=== PATIENT | female | born 1985 | race Caucasian/White ===

== ENCOUNTER 2018-11-10 09:33 | Emergency (ER) | payer OTHER ==
[~2018-11-10] VITALS: Ht 152.4 cm; Wt 61.2 kg
--- OUTSIDE RECORDS SUMMARY | 2018-11-10 09:41 | XMS REPORT | Clinical Summary ---
Author Author [facility] Organization [facility] Address Unknown Phone Unavailable Care Team Providers Care C D Stripper Name Role Phone Tonja Mackey MD PCP Allergies Active Allergy Reactions Severity Noted Date Comments Aspirin Nausea Only 07/02/2016 Morphine Burning 06/13/2016 Current Medications Prescription Sig. Disp. Refills Start End Date Status Date ondansetron (ZOFRAN-ODT) Dissolve 4 mg on the Active 4 MG disintegrating tongue every 8 (eight) tablet hours as needed for nausea. HYDROcodone-acetaminophen Take 1 tablet by mouth Active (NORCO) 5-325 mg per every 6 (six) hours as tablet needed for pain. polyethylene glycol Take 17 g by mouth daily. Active (GLYCOLAX) 17 gram packet hyoscyamine (LEVBID) Take 1 tablet (0.375 mg 30 tablet 0 06/13/20 Active 0.375 mg 12 hr tablet total) by mouth every 12 16 (twelve) hours as needed for cramping. Active Problems No known active problems Social History Tobacco Use Types Packs/Day Years Used Date Never Smoker Alcohol Use Drinks/Week oz/Week Comments No Sex Assigned at Date Recorded Not on file Last Filed Vital Signs Vital Sign Reading Time Taken Blood Pressure 122/83 07/02/2016 10:21 AM CDT Pulse 79 07/02/2016 10:21 AM CDT Temperature 36.7 C (98.1 F) 07/02/2016 10:21 AM CDT Respiratory Rate 20 06/13/2016 2:59 PM CDT Oxygen Saturation 100% 06/13/2016 2:59 PM CDT Inhaled Oxygen - - Concentration Weight 57.2 kg (126 lb) 07/02/2016 10:21 AM CDT Height 152.4 cm (5') 07/02/2016 10:21 AM CDT Body Mass Index 24.61 07/02/2016 10:21 AM CDT Plan of Treatment Health Maintenance Due Date Last Done Comments Td # 1987 Cervical Cancer Screening 02/28/2008 via Pap Smear Influenza Vaccine (Season 07/01/2019 Ended) Results Not on filefrom Last 3 Months
--- OUTSIDE RECORDS SUMMARY | 2018-11-10 09:41 | XMS REPORT | Continuity of Care Document ---
Author Author [facility] Organization [facility] Address Unknown Phone Unavailable Allergies There is no data. Medications There is no data. Problems Date Dx Coded Attending Type Code Diagnosis Diagnosed By 06/05/2015 COSENS DO, JENNIFER L Ot M25.511 06/05/2015 COSENS DO, JENNIFER L Ot M54.10 06/05/2015 COSENS DO, JENNIFER L Ot M54.2 06/05/2015 COSENS DO, JENNIFER L Ot M25.511 06/05/2015 COSENS DO, JENNIFER L Ot M54.10 06/05/2015 COSENS DO, JENNIFER L Ot M54.2 06/05/2015 COSENS DO, JENNIFER L Ot M25.511 06/05/2015 COSENS DO, JENNIFER L Ot M54.10 06/05/2015 COSENS DO, JENNIFER L Ot M54.2 06/05/2015 COSENS DO, JENNIFER L Ot M25.511 06/05/2015 COSENS DO, JENNIFER L Ot M54.10 06/05/2015 COSENS DO, JENNIFER L Ot M54.2 06/06/2015 COSENS DO, JENNIFER L Ot M25.511 06/06/2015 COSENS DO, JENNIFER L Ot M54.10 06/06/2015 COSENS DO, JENNIFER L Ot M54.2 06/06/2015 COSENS DO, JENNIFER L Ot M25.511 06/06/2015 COSENS DO, JENNIFER L Ot M54.10 06/06/2015 COSENS DO, JENNIFER L Ot M54.2 07/18/2015 COSENS DO, JENNIFER L Ot M25.511 07/18/2015 COSENS DO, JENNIFER L Ot M54.10 07/18/2015 COSENS DO, JENNIFER L Ot M54.2 Procedures There is no data. Results There is no data. Encounters ACCT No. Visit Date/Time Discharge Status Pt. Type Provider Facility Loc./Unit Complaint [id number] 05/31/2015 14:40:00 05/31/2015 23:59:59 [facility] Outpatient JENNIFER MORENO DO [facility] RADHA [id number] 05/31/2015 14:47:47 [facility] Document Registration
--- NOTE | 2018-11-10 09:47 | ED Abdominal Pain ---
General Chief Complaint: Abdominal/GI Problems Stated Complaint: VOMITTING Source of Information: Patient Exam Limitations: No Limitations History of Present Illness Date Seen by Provider: Nov 10, 2018 Time Seen by Provider: 09:46 33 y/o F with nausea, vomiting and diarrhea that started 4-5 days ago that have been constant and worsening. She has been vomiting 4-6 times per day. Not really able to keep down solids, able to sometimes keep clear liquids. Has associated sharp intermittent 6/10 suprapubic abdominal pain that radiates to the RLQ. Prior appendectomy, partial SBR (colon bleeding), cholecystectomy, BTL. Has never had bowel obstructions. Pain feels better at rest, worse with movement. Pain feels different than her IBS. No sick contacts, fevers or chills. Allergies and Home Medications Allergies Coded Allergies: aspirin (Verified Allergy, Unknown, nausea, 11/10/18) morphine (Verified Allergy, Unknown, feels like she is "on fire", 11/10/18) Home Medications Ondansetron HCl 4 Mg Tab, 4 MG PO Q6H PRN for NAUSEA/VOMITING-1ST LINE Prescribed by: VINCENT FIELDS on 11/10/18 1218 Prochlorperazine Maleate 25 Mg Supp.rect, 25 MG RC Q6H PRN for NAUSEA/VOMITING- 2ND LINE Prescribed by: VINCENT FIELDS on 11/10/18 1218 Patient Home Medication List Home Medication List Reviewed: Yes Review of Systems Review of Systems Constitutional: No chills, No fever EENTM: No Blurred Vision, No Double Vision, No Mouth Pain Respiratory: Denies Cough, Denies Shortness of Air Cardiovascular: Denies Chest Pain, Denies Edema Gastrointestinal: See HPI; Denies Abdomen Distended; Abdominal Pain; Denies Blood Streaked Stools, Denies Constipated; Diarrhea; Denies Difficulty Swallowing; Nausea, Poor Appetite, Poor Fluid Intake; Denies Rectal Bleeding; Vomiting Genitourinary: Denies Burning, Denies Discharge, Denies Drainage, Denies Frequency, Denies Flank Pain, Denies Hematuria, Denies Pain Musculoskeletal: No joint pain, No muscle pain Skin: No lesions, No rash Psychiatric/Neurological: Denies Anxiety, Denies Weakness Past Wixzczr-Qrljyl-Jryyms Hx Past Med/Social Hx: Reviewed Nursing Past Med/Soc Hx Patient Social History Recent Foreign Travel: No Contact w/Someone Who Travel: No Physical Exam Vital Signs Vital Signs - First Documented 11/10/18 09:41 Temp 98.0 Pulse 97 Resp 18 B/P (MAP) 138/81 (100) Pulse Ox 97 O2 Delivery Room Air Capillary Refill : Height/Weight/BMI Height: '" Weight: lbs. oz. kg; BMI Method: General Appearance: WD/WN, no apparent distress HEENT: PERRL/EOMI, normal ENT inspection Neck: non-tender, normal inspection Respiratory: chest non-tender, lungs clear, normal breath sounds, no respiratory distress, no accessory muscle use Cardiovascular: normal peripheral pulses, regular rate, rhythm, no edema, no gallop, no JVD, no murmur Gastrointestinal: normal bowel sounds, soft, no organomegaly, no pulsatile mass ; No distended, No guarding, No rebound; tenderness (suprapubic and RLQ) Extremities: No non-tender, No no pedal edema Back: No normal inspection, No no CVA tenderness, No no vertebral tenderness Neurologic/Psychiatric: no motor/sensory deficits, alert, normal mood/affect, oriented x 3 Skin: normal color, warm/dry Progress/Results/Core Measures Results/Orders Lab Results Laboratory Tests Test 11/10/18 10:12 11/10/18 10:40 Range/Units White Blood Count 7.1 4.3-11.0 10^3/uL Red Blood Count 5.11 4.35-5.85 10^6/uL Hemoglobin 14.3 11.5-16.0 G/DL Hematocrit 44 35-52 % Mean Corpuscular Volume 85 80-99 FL Mean Corpuscular Hemoglobin 28 25-34 PG Mean Corpuscular Hemoglobin Concent 33 32-36 G/DL Red Cell Distribution Width 12.5 10.0-14.5 % Platelet Count 243 130-400 10^3/uL Mean Platelet Volume 11.2 H 7.4-10.4 FL Neutrophils (%) (Auto) 65 42-75 % Lymphocytes (%) (Auto) 21 12-44 % Monocytes (%) (Auto) 9 0-12 % Eosinophils (%) (Auto) 3 0-10 % Basophils (%) (Auto) 1 0-10 % Neutrophils # (Auto) 4.6 1.8-7.8 X 10^3 Lymphocytes # (Auto) 1.5 1.0-4.0 X 10^3 Monocytes # (Auto) 0.6 0.0-1.0 X 10^3 Eosinophils # (Auto) 0.2 0.0-0.3 10^3/uL Basophils # (Auto) 0.1 0.0-0.1 10^3/uL Sodium Level 140 135-145 MMOL/L Potassium Level 4.6 3.6-5.0 MMOL/L Chloride Level 104 98-107 MMOL/L Carbon Dioxide Level 16 L 21-32 MMOL/L Anion Gap 20 H 5-14 MMOL/L Blood Urea Nitrogen 7 7-18 MG/DL Creatinine 0.77 0.60-1.30 MG/DL Estimat Glomerular Filtration Rate > 60 BUN/Creatinine Ratio 9 Glucose Level 100 70-105 MG/DL Calcium Level 9.4 8.5-10.1 MG/DL Corrected Calcium 9.1 8.5-10.1 MG/DL Total Bilirubin 0.7 0.1-1.0 MG/DL Aspartate Amino Transf (AST/SGOT) 12 5-34 U/L Alanine Aminotransferase (ALT/SGPT) < 5 0-55 U/L Alkaline Phosphatase 71 40-136 U/L Total Protein 7.6 6.4-8.2 GM/DL Albumin 4.4 3.2-4.5 GM/DL Lipase 18 8-78 U/L Serum Test, Qualitative NEGATIVE NEGATIVE Urine Color YELLOW Urine Clarity CLEAR Urine pH 6.0 5-9 Urine Specific [place] 1.015 L 1.016-1.022 Urine Protein NEGATIVE NEGATIVE Urine Glucose (UA) NEGATIVE NEGATIVE Urine Ketones NEGATIVE NEGATIVE Urine Nitrite NEGATIVE NEGATIVE Urine Bilirubin NEGATIVE NEGATIVE Urine Urobilinogen 0.2 NORMAL MG/DL Urine Leukocyte Esterase NEGATIVE NEGATIVE Urine RBC (Auto) NEGATIVE NEGATIVE Urine RBC NONE /HPF Urine WBC 0-2 /HPF Urine Squamous Epithelial Cells 2-5 /HPF Urine Crystals NONE /LPF Urine Bacteria TRACE /HPF Urine Casts NONE /LPF Urine Mucus LARGE H /LPF Urine Culture Indicated NO My Orders Orders - VINCENT FIELDS MD Comprehensive Metabolic Panel (11/10/18 09:54) Lipase (11/10/18 09:54) Ua Culture If Indicated (11/10/18 09:54) Hcg,Qualitative Serum (11/10/18 09:54) Saline Lock/Iv-Start (11/10/18 09:54) Cbc With Automated Diff (11/10/18 09:54) Ns Iv 1000 Ml (Sodium Chloride 0.9%) (11/10/18 10:15) Ondansetron Injection (Zofran Injectio (11/10/18 10:15) D5w 1000 Ml Iv Solution (Dextrose 5% Hilda (11/10/18 11:00) Prochlorperazine Injection (Compazine In (11/10/18 11:00) Diphenhydramine Injection (Benadryl Inje (11/10/18 11:00) Medications Given in ED Current Medications Medications Dose Ordered Sig/Nathanael Route Start Time Stop Time Status Last Admin Dose Admin Diphenhydramine HCl 12.5 mg ONCE ONCE IM 11/10/18 11:00 11/10/18 11:01 DC 11/10/18 11:06 12.5 MG Ondansetron HCl 4 mg ONCE ONCE IVP 11/10/18 10:15 11/10/18 10:16 DC 11/10/18 10:15 4 MG Prochlorperazine Edisylate 10 mg ONCE ONCE IV 11/10/18 11:00 11/10/18 11:01 DC 11/10/18 11:04 10 MG Vital Signs/I&O 11/10/18 09:41 Temp 98.0 Pulse 97 Resp 18 B/P (MAP) 138/81 (100) Pulse Ox 97 O2 Delivery Room Air Progress Progress Note #1: Time: 10:59 Progress Note still nauseated, attempted some sips of water, no vomiting, asking for more nausea medications. Treat with D5NS bolus, compazine 10 mg IV, Benadryl 12.5 mg IV. Progress Note #2: Time: 11:35 Progress Note Improving nausea and abdominal pain. Will try PO challenge. Progress Note #3: Time: 12:13 Progress Note Pain has resolved, nausea resolved, tolerates PO challenge. Discussed results of testing, prescriptions, reason for follow up, all questions answered. Departure Impression Primary Impression: Nausea & vomiting Additional Impression: Abdominal pain Disposition: 01 HOME, SELF-CARE Condition: Improved Departure-Patient Inst. Decision time for Depature: 12:13 Referrals: NO,LOCAL PHYSICIAN (PCP/Family) Primary Care Physician Patient Instructions: Nausea and Vomiting, Adult (DC) Add. Discharge Instructions: All discharge instructions reviewed with patient and/or family. Voiced understanding. Scripts Prochlorperazine Maleate (Compazine) 25 Mg Supp.rect 25 MG RC Q6H PRN for NAUSEA/VOMITING-2ND LINE, #10 SUPP.RECT Prov: VINCENT FIELDS MD 11/10/18 Ondansetron HCl (Zofran) 4 Mg Tab 4 MG PO Q6H PRN for NAUSEA/VOMITING-1ST LINE, #14 TAB Prov: VINCENT FIELDS MD 11/10/18 VINCENT FIELDS MD Nov 10, 2018 09:47
[2018-11-10] MEDS ORDERED: NS IV 1000 ML 1,000 ML IV SCH (10:15)
[2018-11-10] MEDS ORDERED: ONDANSETRON 4 MG/2 ML (SDV) Z0FRAN IVP ONE (10:15)
[2018-11-10 10:24] LABS: HEMATOCRIT 44 % (35-52); HEMOGLOBIN 14.3 G/DL (11.5-16.0); MEAN CORPUSCULAR HEMOGLOBIN 28 PG (25-34); MEAN CORPUSCULAR HGB CONC 33 G/DL (32-36); MEAN CORPUSCULAR VOLUME 85 FL (80-99); MEAN PLATELET VOLUME 11.2 FL (7.4-10.4); NEUTROPHILS % (AUTO) 65 % (42-75); PLATELET COUNT 243 10^3/uL (130-400); RED CELL DISTRIBUTION WIDTH 12.5 % (10.0-14.5); WHITE BLOOD COUNT 7.1 10^3/uL (4.3-11.0)
[2018-11-10 10:25] LABS: BASOPHILS # (AUTO) 0.1 10^3/uL (0.0-0.1); BASOPHILS % (AUTO) 1 % (0-10); EOSINOPHILS # (AUTO) 0.2 10^3/uL (0.0-0.3); EOSINOPHILS % (AUTO) 3 % (0-10); LYMPHOCYTES # (AUTO) 1.5 X 10^3 (1.0-4.0); LYMPHOCYTES % (AUTO) 21 % (12-44); MONOCYTES # (AUTO) 0.6 X 10^3 (0.0-1.0); MONOCYTES % (AUTO) 9 % (0-12); NEUTROPHILS # (AUTO) 4.6 X 10^3 (1.8-7.8)
[2018-11-10 10:51] LABS: CLARITY,URINE CLEAR; COLOR,URINE YELLOW
[2018-11-10 10:52] LABS: BACTERIA,URINE TRACE /HPF; BILIRUBIN,URINE NEGATIVE (NEGATIVE); GLUCOSE, URINE (UA) NEGATIVE (NEGATIVE); KETONES,URINE NEGATIVE (NEGATIVE); LEUKOCYTE ESTERASE ,URINE NEGATIVE (NEGATIVE); NITRITE,URINE NEGATIVE (NEGATIVE); PROTEIN,URINE NEGATIVE (NEGATIVE); UROBILINOGEN,URINE 0.2 MG/DL (NORMAL); WBC,URINE 0-2 /HPF
[2018-11-10 10:58] LABS: ALKALINE PHOSPHATASE 71 U/L (40-136); BILIRUBIN,TOTAL 0.7 MG/DL (0.1-1.0); BUN/CREATININE RATIO 9; CALCIUM 9.4 MG/DL (8.5-10.1); CARBON DIOXIDE 16 MMOL/L (21-32); CHLORIDE 104 MMOL/L (98-107); CREATININE SERUM 0.77 MG/DL (0.60-1.30); GFR ESTIMATED > 60; GLUCOSE 100 MG/DL (70-105); POTASSIUM 4.6 MMOL/L (3.6-5.0); SODIUM 140 MMOL/L (135-145)
[2018-11-10 10:59] LABS: ALANINE AMINOTRANSFERASE < 5 U/L (0-55); ALBUMIN 4.4 GM/DL (3.2-4.5); LIPASE 18 U/L (8-78); TOTAL PROTEIN 7.6 GM/DL (6.4-8.2)
[2018-11-10] MEDS ORDERED: PROCHLORPERAZINE 10 MG/2ML INJ (COMPAZINE) IV ONE (11:00)
[2018-11-10] MEDS ORDERED: D5W 1000 ML IV SOLUTION 1,000 ML IV SCH (11:00)
[2018-11-10] MEDS ORDERED: diphenhydrAMINE 50 MG/ML INJ (BENADRYL) IM ONE (11:00)
[2018-11-10] MEDS ORDERED: PROC25SU27 RC (12:18)
[2018-11-10] MEDS ORDERED: ONDN4T PO (12:18)
[2018-11-10 12:29] VITALS: BP 109/68
== END 2018-11-10 12:30 | disposition home or self-care (01) ==
LOC: EDUNIT# 09:33 → ER FS 09:37
DX: R11.2 Nausea with vomiting, unspecified (principal); R10.31 Right lower quadrant pain; Z88.6 Allergy status to analgesic agent; Z88.5 Allergy status to narcotic agent; Z90.49 Acquired absence of other specified parts of digestive tract
CPT/HCPCS: 36415; 80053; 81000; 83690; 84703; 85025

== ENCOUNTER 2019-01-16 14:32 | Emergency (ER) | payer OTHER ==
[~2019-01-16] VITALS: Ht 152.4 cm; Wt 61.2 kg
[~2019-01-16 14:32] MED LIST: ONDN4T PO; PROC25SU27 RC
--- NOTE | 2019-01-16 14:58 | ED General ---
General Stated Complaint: RT LOWER ABD PAIN History of Present Illness Date Seen by Provider: January 16, 2019 Time Seen by Provider: 14:58 Initial Comments Patient is a 33-year-old female who presents to the emergency department complaining of menstrual cramps. The patient is currently on day 3 of her menses. She does state she normally has a lot of pain and cramps during her menstrual cycles. She endorses worsening symptoms over the last 3-4 cycles. Today, she states the pain was too severe and she could not take it at home. She took an over the counter dose of Motrin but did not have relief of symptoms. The patient is . She has prior surgical history positive for bilateral tubal ligation, section, appendectomy and cholecystectomy. She has been with the same sexual partner for 12 years. She has no complaints of irregular vaginal discharge or irregular vaginal bleeding. No fever or chills. No back or flank pain. She did have some nausea this morning. She also does have a known history of irritable bowel syndrome but takes very few medications. Allergies and Home Medications Allergies Coded Allergies: aspirin (Verified Allergy, Unknown, nausea, 11/10/18) morphine (Verified Allergy, Unknown, feels like she is "on fire", 11/10/18) Home Medications Acetaminophen with Codeine 1 Each Tablet, 2 EACH PO Q8H PRN for severe pain Prescribed by: JENNIFER MIN on 01/16/19 1624 Ibuprofen 800 Mg Tablet, 800 MG PO Q8H PRN for PAIN-MILD Prescribed by: JENNIFER MIN on 01/16/19 1624 Ondansetron HCl 4 Mg Tab, 4 MG PO Q6H PRN for NAUSEA/VOMITING-1ST LINE Prescribed by: VINCENT FIELDS on 11/10/18 1218 Prochlorperazine Maleate 25 Mg Supp.rect, 25 MG RC Q6H PRN for NAUSEA/VOMITING- 2ND LINE Prescribed by: VINCENT FIELDS on 11/10/18 1218 Patient Home Medication List Home Medication List Reviewed: Yes Review of Systems Review of Systems Constitutional: no symptoms reported EENTM: no symptoms reported Respiratory: no symptoms reported Cardiovascular: no symptoms reported Gastrointestinal: RLQ Genitourinary: no symptoms reported : No Musculoskeletal: no symptoms reported Skin: no symptoms reported Hematologic/Lymphatic: No Symptoms Reported Past Fpclczb-Ufdiqj-Ohqdqg Hx Patient Social History 2nd Hand Smoke Exposure: No Recent Hopitalizations: No Past Medical History Surgeries: Yes Appendectomy, Bowel Surgery, Gallbladder, Tubal Ligation Respiratory: No Cardiac: No 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 oz. 61.061495hg; BMI Method:Stated General Appearance: No Apparent Distress, WD/WN Eyes: Bilateral Eye Normal Inspection, Bilateral Eye EOMI HEENT: PERRL/EOMI, Normal ENT Inspection Neck: Full Range of Motion, Normal Inspection Respiratory: Chest Non Tender, Lungs Clear Cardiovascular: Regular Rate, Rhythm, No Edema Gastrointestinal: Normal Bowel Sounds, Soft, Other (mild tenderness to palpation over the right pelvic area but no guarding or rebound. The rest of her abdominal exam is unremarkable) Back: Normal Inspection Extremity: Normal Capillary Refill Neurologic/Psychiatric: Alert, Oriented x3 Skin: Normal Color, Warm/Dry Progress/Results/Core Measures Suspected Sepsis SIRS Temperature: Pulse: Respiratory Rate: Blood Pressure / Mean: Results/Orders Lab Results Laboratory Tests Test 01/16/19 14:52 Range/Units Urine Color YELLOW Urine Clarity CLEAR Urine pH 6.0 5-9 Urine Specific [place] <1.005 1.016-1.022 Urine Protein NEGATIVE NEGATIVE Urine Glucose (UA) NEGATIVE NEGATIVE Urine Ketones NEGATIVE NEGATIVE Urine Nitrite NEGATIVE NEGATIVE Urine Bilirubin NEGATIVE NEGATIVE Urine Urobilinogen 0.2 NORMAL MG/DL Urine Leukocyte Esterase NEGATIVE NEGATIVE Urine RBC (Auto) 3+ H NEGATIVE Urine RBC 50-100 H /HPF Urine WBC NONE /HPF Urine Squamous Epithelial Cells 2-5 /HPF Urine Crystals NONE /LPF Urine Bacteria TRACE /HPF Urine Casts NONE /LPF Urine Mucus NEGATIVE /LPF Urine Culture Indicated NO Urine Test NEGATIVE NEGATIVE My Orders Orders - JENNIFER MIN DO Ua Culture If Indicated (01/16/19 14:45) Hcg,Qualitative Urine (01/16/19 14:45) Ketorolac Injection (Toradol Injection) (01/16/19 15:30) Acetaminophen/Codeine Tablet (Tylenol W/ (01/16/19 15:30) Ct Abdomen/Pelvis Wo (01/16/19 15:45) Medications Given in ED Current Medications Medications Dose Ordered Sig/Nathanael Route Start Time Stop Time Status Last Admin Dose Admin Acetaminophen/ Codeine Phosphate 2 tab ONCE ONCE PO 01/16/19 15:30 01/16/19 15:31 DC 01/16/19 15:31 2 TAB Ketorolac Tromethamine 60 mg ONCE ONCE IM 01/16/19 15:30 01/16/19 15:31 DC 01/16/19 15:30 60 MG Vital Signs/I&O 01/16/19 14:49 Temp 98.0 Pulse 80 Resp 18 B/P (MAP) 127/71 (89) Pulse Ox 99 Capillary Refill : Progress Note : Time: 15:35 Progress Note Patient is seen and examined. The patient herself feels that this pain is very typical for her menstrual cycle pain but more severe compared to normal. Differential diagnoses include PID, torsion, tubo-ovarian abscess, ovarian cyst, ectopic , appendicitis, fibroid uterus, menstrual cramps. Kidney stone. There is no formal ultrasound available at this time. I did perform bedside ultrasound of the pelvis with transabdominal approach. I was able to visualize both right and left ovaries. There was a small cyst noted adjacent to the right ovary. Color Doppler revealed blood flow bilaterally. I also checked the right renal pelvis and there was no hydronephrosis present. Regarding the differential diagnoses, the patient has no fever. She has been with the same sexual partner for 12 years. She has blood flow to the ovary. Her test is negative. She is status post appendectomy. This leaves menstrual cramps and kidney stone. If the stone is present, this presentation would be atypical and there is no hydrocele seen on bedside ultrasound. The patient is primarily requesting medication for symptom relief. In the ER, she is ordered to have Toradol 60 mg IM and 2 Tylenol 3 with codeine. 16:20: Patient is currently feeling improved. Her has been waiting in the waiting room and will be driving her home. CT scan is returned and revealing for some mild prominence of the renal pelvis on the right but no stone and no hydronephrosis. I think this is likely an over read as the patient did not have any flank pain. There was no stone seen. Either way, the patient is discharged to home. She is given a prescription for Motrin 800 mg as well as Tylenol 3. 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 Return to this ER for any new or worsening symptoms. Departure Impression Primary Impression: Dysmenorrhea Disposition: HOME, SELF-CARE Condition: Improved Departure-Patient Inst. Referrals: NO,LOCAL PHYSICIAN (PCP/Family) Primary Care Physician Scripts Acetaminophen with Codeine (Acetaminophen-Cod #3 Tablet) 1 Each Tablet 2 EACH PO Q8H PRN for severe pain for 7 Days, #24 TAB Prov: JENNIFER MIN DO 01/16/19 Ibuprofen (Ibuprofen) 800 Mg Tablet 800 MG PO Q8H PRN for PAIN-MILD, #30 TAB Prov: JENNIFER MIN DO 01/16/19 JENNIFER MIN DO January 16, 2019 14:58
[2019-01-16 15:07] LABS: BACTERIA,URINE TRACE /HPF; BILIRUBIN,URINE NEGATIVE (NEGATIVE); CLARITY,URINE CLEAR; COLOR,URINE YELLOW; GLUCOSE, URINE (UA) NEGATIVE (NEGATIVE); KETONES,URINE NEGATIVE (NEGATIVE); LEUKOCYTE ESTERASE ,URINE NEGATIVE (NEGATIVE); NITRITE,URINE NEGATIVE (NEGATIVE); PROTEIN,URINE NEGATIVE (NEGATIVE); RBC,URINE 50-100 /HPF; UROBILINOGEN,URINE 0.2 MG/DL (NORMAL)
[2019-01-16 15:08] LABS: HCG,QUALITATIVE URINE NEGATIVE (NEGATIVE)
[2019-01-16] MEDS ORDERED: KETOROLAC 60 MG/2 ML VIAL IM ONE (15:30)
[2019-01-16] MEDS ORDERED: APAP 300 MG/CODEINE 30 MG (TYLENOL #3) TAB PO ONE (15:30)
--- NOTE | 2019-01-16 16:13 | Diagnostic Imaging Report ---
PROCEDURE: CT abdomen and pelvis without contrast. TECHNIQUE: Multiple contiguous axial images were obtained through the abdomen and pelvis without the use of intravenous contrast. Auto Exposure Controls were utilized during the CT exam to meet ALARA standards for radiation dose reduction. INDICATION: Right lower abdominal pain. Prior history of a section and tubal ligation as well as cholecystectomy and appendectomy. COMPARISON: No comparison available. FINDINGS: Lung bases demonstrate some minimal dependent atelectasis and are otherwise clear. There is no pleural or pericardial effusion. The liver demonstrates no evidence of a focal intrahepatic abnormality. The gallbladder is surgically absent. There is no abnormal biliary dilatation. The spleen is normal in size. There is no adrenal mass. The pancreas is unremarkable without ductal dilatation or adjacent stranding or fluid. The left kidney appears nonobstructed. The right kidney demonstrates mild prominence of the renal pelvis and intrarenal calyces as well as mild prominence of the proximal aspect of the ureter. The distal ureter is normal in caliber. There is no radiodense stone within the ureter or within the urinary bladder. The small and large bowel are normal in caliber without evidence to suggest obstruction. There are prior anastomotic sutures present within the distal small bowel. The ileocecal valve is unremarkable. There is no free fluid present within the pelvis. There is no free air or abscess. There is no focal inflammation within the omentum or mesentery. The urinary bladder is nondistended. The uterus and adnexa appear unremarkable by CT. There are no pathologically enlarged lymph nodes. The aorta is normal in caliber. There is no acute osseous abnormality within the visualized portion of the spine. IMPRESSION: 1. Mild nonspecific slight prominence of the right pelvis and calyces with a normal caliber distal ureter. This may reflect a mild UPJ obstruction. A recently passed stone could not be completely excluded. 2. Left kidney nonobstructed. 3. Operative changes of previous cholecystectomy without biliary dilatation. 4. No bowel obstruction. There are prior small bowel anastomotic sutures present but no proximal abnormal dilation. There is no focal inflammation within the right lower quadrant. The appendix is reportedly surgically absent. 5. No free air, free fluid, or abscess. 6. Uterus and adnexa are unremarkable by CT. Dictated by: Dictated on workstation # [id number]
[2019-01-16] MEDS ORDERED: IBUP-1780 PO (16:24)
[2019-01-16] MEDS ORDERED: ACET1TAB43 PO (16:24)
[2019-01-16 16:35] VITALS: BP 132/92
== END 2019-01-16 16:35 | disposition home or self-care (01) ==
LOC: EDUNIT# 14:32 → ER FS 14:33
DX: N94.6 Dysmenorrhea, unspecified (principal); K58.9 Irritable bowel syndrome, unspecified; Z88.6 Allergy status to analgesic agent; Z88.5 Allergy status to narcotic agent; Z98.51 Tubal ligation status; Z90.49 Acquired absence of other specified parts of digestive tract; Z98.890 Other specified postprocedural states
CPT/HCPCS: 74176; 81000; 84703

== ENCOUNTER 2021-08-01 21:48 | Emergency (ER) | payer BC, OTHER ==
[~2021-08-01 21:48] MED LIST changes: +ACET1TAB43 PO; +IBUP-1780 PO
--- NOTE | 2021-08-01 21:57 | ED Upper Extremity ---
General Chief Complaint: Upper Extremity Stated Complaint: FALL,RT WRIST PAIN History of Present Illness Date Seen by Provider: Aug 01, 2021 Time Seen by Provider: 21:55 Initial Comments Patient presenting to emergency department for evaluation of right wrist pain after she says she drink too much wine tripped and fell on outstretched hand. She denies any other areas of pain and no weakness numbness or tingling and she is in no acute distress with normal vital signs. Allergies and Home Medications Allergies Coded Allergies: aspirin (Verified Allergy, Unknown, nausea, 11/10/18) morphine (Verified Allergy, Unknown, feels like she is "on fire", 11/10/18) Patient Home Medication List Home Medication List Reviewed: Yes Acetaminophen with Codeine (Acetaminophen-Cod #3 Tablet) 1 Each Tablet, 2 EACH PO Q8H PRN for severe pain Prescribed by: JENNIFER MIN on 01/16/19 1624 Ibuprofen (Ibuprofen) 800 Mg Tablet, 800 MG PO Q8H PRN for PAIN-MILD Prescribed by: JENNIFER MIN on 01/16/19 1624 Ondansetron HCl (Zofran) 4 Mg Tab, 4 MG PO Q6H PRN for NAUSEA/VOMITING-1ST LINE Prescribed by: VINCENT FIELDS on 11/10/18 1218 Prochlorperazine Maleate (Compazine) 25 Mg Supp.rect, 25 MG RC Q6H PRN for NAUSEA/VOMITING-2ND LINE Prescribed by: VINCENT FIELDS on 11/10/18 1218 Review of Systems Constitutional: no symptoms reported Musculoskeletal: joint pain, joint swelling Skin: no symptoms reported Psychiatric/Neurological: No Symptoms Reported Past Kjmqthv-Gpfjpf-Kyuvdw Hx Seasonal Allergies Seasonal Allergies: No Past Medical History Surgeries: Yes Appendectomy, Section, Gallbladder, Tubal Ligation Respiratory: No Cardiac: No 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 oz. 61.913529qd; BMI Method:Stated General Appearance: WD/WN, no apparent distress Respiratory: no respiratory distress Elbow/Forearm: normal inspection, non-tender Wrist: Yes bone tenderness, Yes pain, Yes soft tissue tenderness, Yes swelling Hand: bone tenderness (Along fifth metacarpal proximally) Neurologic/Tendon: normal sensation, normal motor functions, normal tendon functions Neurologic/Psychiatric: no motor/sensory deficits Skin: warm/dry Progress/Results/Core Measures Results/Orders My Orders Orders - MARK WOOD DO Wrist 3 View Right (08/01/21 21:52) Vital Signs/I&O 08/01/21 21:53 Pulse 116 Resp 18 B/P (MAP) 150/81 (104) Pulse Ox 99 O2 Delivery Room Air Progress Progress Note : Progress Note Patient has pain along the ulnar wrist in addition to the fifth metacarpal. She did not want anything for pain. I will check an x-ray and reassess. X-ray is negative but she started having numbness in the tips of all her fingers I told her she likely has a neuropraxia and will need follow-up. Patient put in a Velcro wrist splint and she was neurovascularly intact pre and post splinting except for the numbness in the fingertips. Recommended rice precautions and NSAIDs follow-up in 1 week and to come back to emergency department sooner with worsening pain neurologic changes or other general concerns. Patient aware and agreeable with plan. Departure Impression Primary Impression: Sprain of right wrist Qualified Codes: S63.501A - Unspecified sprain of right wrist, initial encounter Disposition: 01 HOME, SELF-CARE Condition: Stable Departure-Patient Inst. Referrals: EDELMIRA WEBSTER NO,LOCAL PHYSICIAN (PCP) Primary Care Physician Patient Instructions: Wrist Sprain (DC) Add. Discharge Instructions: Rest, Ice, Compression, Elevation, nsaids, follow up. All discharge instructions reviewed with patient and/or family. Voiced understanding. Scripts Hydrocodone/Acetaminophen (Hydrocodone-Acetamin 5-325 mg) 1 Each Tablet 1 TAB PO Q4H PRN for PAIN-MODERATE (5-7), #10 TAB Prov: MARK WOOD DO 08/01/21 Ibuprofen (Ibuprofen) 800 Mg Tablet 800 MG PO Q8H PRN for PAIN, #20 TAB 0 Refills Prov: MARK WOOD DO 08/01/21 MARK WOOD DO Aug 01, 2021 21:57
--- NOTE | 2021-08-01 22:06 | Diagnostic Imaging Report ---
INDICATION: Right wrist pain post fall. AP, oblique, lateral views of the right wrist are obtained. No fracture or acute bony abnormality seen. Joint spaces are unremarkable. IMPRESSION: Negative right wrist. Dictated by: Dictated on workstation # [id number]
[2021-08-01] MEDS ORDERED: IBUPROFEN 600 MG (MOTRIN) TAB PO ONE (22:45)
[2021-08-01] MEDS ORDERED: HYDROcodone/APAP 5 MG/325 MG (LORTAB) TAB PO ONE (22:45)
[2021-08-01] MEDS ORDERED: ACHD5005 PO (22:46)
[2021-08-01] MEDS ORDERED: IBUP-1780 PO (22:46)
[2021-08-01 22:49] VITALS: BP 150/81
== END 2021-08-01 22:50 | disposition home or self-care (01) ==
LOC: EDUNIT# 21:48 → ER FS 21:50
DX: S63.501A Unspecified sprain of right wrist, initial encounter (principal); W01.0XXA Fall on same level from slipping, tripping and stumbling without subsequent striking against object, initial encounter
CPT/HCPCS: 73110

== ENCOUNTER 2022-02-21 13:29 | Emergency (ER) | payer BC, OTHER ==
[~2022-02-21] VITALS: Ht 154.9 cm; Wt 54.4 kg
[~2022-02-21 13:29] MED LIST changes: +ACET-11 PO; -ACET1TAB43 PO; +ACHD5005 PO
[2022-02-21 13:33] VITALS: BP 139/97
[2022-02-21] MEDS ORDERED: AMPICILLIN/SULBACTAM INJECTION 3 GM in NS (IVPB) 100 ML IV ONE (13:45)
[2022-02-21] MEDS ORDERED: ONDANSETRON 4 MG/2 ML (SDV) Z0FRAN IVP ONE (13:45)
--- NOTE | 2022-02-21 13:50 | ED General ---
General Chief Complaint: Fever-Adult/Adol Stated Complaint: VOMITING; FEVER; HEADACHE Source of Information: Patient Exam Limitations: No Limitations History of Present Illness Date Seen by Provider: Feb 21, 2022 Time Seen by Provider: 13:32 Initial Comments 36-year-old female with no pertinent past medical history coming in due to co ncerns for dental infection. She had a filling that fell out on her bottom right molar just over a week ago. Last Thursday she was admitted to hospital due to infection with swelling in her face. She was on IV antibiotics for 2 days and sent home on amoxicillin. Swelling significantly improved, but somewhat came back yesterday with temperature up to 101 F. She continues to take her amoxicillin and Tylenol. Has had some mild nausea, and she does have chronic diarrhea with IBS which is unchanged. She is otherwise denying any other acute complaints. She is scheduled to get the tooth removed in roughly 2 weeks. Allergies and Home Medications Allergies Coded Allergies: aspirin (Verified Allergy, Unknown, nausea, 11/10/18) morphine (Verified Allergy, Unknown, feels like she is "on fire", 11/10/18) vancomycin (Verified Allergy, Unknown, 02/21/22) Patient Home Medication List Home Medication List Reviewed: Yes Acetaminophen with Codeine (Acetaminophen-Cod #3 Tablet) 1 Each Tablet, 2 EACH PO Q8H PRN for severe pain Prescribed by: JENNIFER MIN on 01/16/19 1624 Amoxicillin/Potassium Clav (Augmentin 875-125 Tablet) 1 Each Tablet, 1 EACH PO BID Prescribed by: CLAUDIA DAVIS on 02/21/22 1351 Hydrocodone/Acetaminophen (Hydrocodone-Acetamin 5-325 mg) 1 Each Tablet, 1 TAB PO Q4H PRN for PAIN-MODERATE (5-7) Prescribed by: MARK WOOD on 08/01/21 2247 Ibuprofen (Ibuprofen) 800 Mg Tablet, 800 MG PO Q8H PRN for PAIN-MILD Prescribed by: JENNIFER MIN on 01/16/19 1624 Ibuprofen (Ibuprofen) 800 Mg Tablet, 800 MG PO Q8H PRN for PAIN Prescribed by: MARK WOOD on 08/01/21 2246 Ondansetron HCl (Zofran) 4 Mg Tab, 4 MG PO Q6H PRN for NAUSEA/VOMITING-1ST LINE Prescribed by: VINCENT FIELDS on 11/10/18 1218 Prochlorperazine Maleate (Compazine) 25 Mg Supp.rect, 25 MG RC Q6H PRN for NAUSEA/VOMITING-2ND LINE Prescribed by: VINCENT FIELDS on 11/10/18 1218 Review of Systems Review of Systems Constitutional: fever EENTM: dental problems; No blurred vision Respiratory: no symptoms reported Past Ielzikn-Jdfrpp-Mxnbqi Hx Patient Social History Substance use?: No Seasonal Allergies Seasonal Allergies: No Past Medical History Surgeries: Yes Appendectomy, Section, Gallbladder, Tubal Ligation Respiratory: No Cardiac: No 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 oz. 61.729807md; BMI Method:Stated General Appearance: No Apparent Distress, WD/WN HEENT: PERRL/EOMI, Normal ENT Inspection, Pharynx Normal, Other (Tooth #31 with obvious cavity with part of the tooth fractured, no abscess felt, no facial swelling, no trismus, normal voice, floor of mouth is soft, uvula midline, normal voice) Neck: Full Range of Motion, Normal Inspection, Non Tender, Supple Respiratory: Chest Non Tender, Lungs Clear, Normal Breath Sounds, No Accessory Muscle Use, No Respiratory Distress Cardiovascular: Regular Rate, Rhythm, No Edema, Normal Peripheral Pulses Gastrointestinal: Normal Bowel Sounds, Non Tender, Soft; No Distended, No Guarding Back: Normal Inspection, No CVA Tenderness Extremity: Normal Capillary Refill, Normal Inspection, Normal Range of Motion, Non Tender, No Calf Tenderness, No Pedal Edema Neurologic/Psychiatric: Alert, No Motor/Sensory Deficits, Normal Mood/Affect Skin: Normal Color, Warm/Dry Lymphatic: No Adenopathy Progress/Results/Core Measures Suspected Sepsis SIRS Temperature: Pulse: Respiratory Rate: Blood Pressure / Mean: Results/Orders My Orders Orders - CLAUDIA DAVIS MD Urine Bedside (02/21/22 13:34) Ampicillin/Sulbactam Injection (Unasyn 3 (02/21/22 13:45) Ondansetron Injection (Zofran Injectio (02/21/22 13:45) Medications Given in ED Current Medications Medications Dose Ordered Sig/Nathanael Route Start Time Stop Time Status Last Admin Dose Admin Ampicillin Sodium/ Sulbactam Sodium 3 gm/Sodium Chloride 100 ml @ 200 mls/hr ONCE ONCE IV 02/21/22 13:45 02/21/22 14:14 02/21/22 14:03 200 MLS/HR Ondansetron HCl 4 mg ONCE ONCE IVP 02/21/22 13:45 02/21/22 13:46 DC 02/21/22 14:03 4 MG Vital Signs/I&O 02/21/22 13:33 Temp 36.7 Pulse 91 Resp 16 B/P (MAP) 139/97 (111) Pulse Ox 100 O2 Delivery Room Air Capillary Refill : Progress Note : Progress Note 36-year-old female with above history coming in due to dental tenderness and concern for infection. ABCs were intact and vitals were stable on presentation. Physical exam with dental tenderness around tooth #31 with no obvious abscess felt. She does not have any significant facial swelling on my exam. We will give her a dose of Unasyn given the concerns for repeat infection. I will change her over from amoxicillin to Augmentin. She does have follow-up with her dentist already to get the tooth removed. I believe she is stable for discharge with outpatient follow-up. She was sent home with strict return precautions Departure Impression Primary Impression: Dental infection Disposition: HOME, SELF-CARE Condition: Stable Departure-Patient Inst. Decision time for Depature: 14:30 Referrals: NO,LOCAL PHYSICIAN (PCP/Family) Primary Care Physician Patient Instructions: Tooth Abscess ED Add. Discharge Instructions: We will change agent your antibiotics to Aumentin. Stop the amoxicillin. Take ibuprofen or tylenol for fever or pain. It is very important that you get the tooth removed, otherwise the problem will persist. Scripts Amoxicillin/Potassium Clav (Augmentin 875-125 Tablet) 1 Each Tablet 1 EACH PO BID for 7 Days, #14 TAB Prov: CLAUDIA DAVIS MD 02/21/22 Work/School Note: Work Release Form Date Seen in the Emergency Department: Feb 21, 2022 Return to Work: Feb 23, 2022 Restrictions: No Restrictions CLAUDIA DAVIS MD Feb 21, 2022 13:50
[2022-02-21] MEDS ORDERED: AMOX-358 PO (13:51)
== END 2022-02-21 14:35 | disposition home or self-care (01) ==
LOC: EDUNIT# 13:29 → ER FS 13:31
DX: K04.7 Periapical abscess without sinus (principal); K02.9 Dental caries, unspecified; K03.81 Cracked tooth
CPT/HCPCS: 84703

== ENCOUNTER 2023-08-04 14:46 | Emergency (ER) | payer SELFPAY ==
[~2023-08-04] VITALS: Ht 154 cm; Wt 59.7 kg
[~2023-08-04 14:46] MED LIST changes: +AMOX-358 PO
[2023-08-04 14:50] VITALS: BP 127/85
--- NOTE | 2023-08-04 14:58 | ED EENT ---
History of Present Illness General Chief Complaint: Facial Problems Stated Complaint: FACIAL SWELLING History of Present Illness Date Seen by Provider: Aug 04, 2023 Time Seen by Provider: 14:55 Initial Comments 38-year-old female is here with complaints of left-sided facial swelling and left-sided upper teeth and lower teeth pain and extensive dental caries. 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 Patient reports that she has had left-sided teeth pain and that the swelling started today morning and worsened a little bit by afternoon. Denies fever and chills, shortness of breath, lip/tongue/throat swe lling, nausea and vomiting, dizziness, headaches. Patient states that she does not have insurance so she has not been into see a dentist. Allergies and Home Medications Allergies Coded Allergies: aspirin (Verified Allergy, Unknown, nausea, 11/10/18) morphine (Verified Allergy, Unknown, feels like she is "on fire", 11/10/18) vancomycin (Verified Allergy, Unknown, 02/21/22) Patient Home Medication List Home Medication List Reviewed: Yes Acetaminophen with Codeine (Acetaminophen-Cod #3 Tablet) 1 Each Tablet, 2 EACH PO Q8H PRN for severe pain Prescribed by: JENNIFER MIN on 01/16/19 1624 Amoxicillin/Potassium Clav (Augmentin 875-125 Tablet) 1 Each Tablet, 1 EACH PO BID Prescribed by: CLAUDIA DAVIS on 02/21/22 1351 Hydrocodone/Acetaminophen (Hydrocodone-Acetamin 5-325 mg) 1 Each Tablet, 1 TAB PO Q4H PRN for PAIN-MODERATE (5-7) Prescribed by: MARK WOOD on 08/01/21 2247 Ibuprofen (Ibuprofen) 800 Mg Tablet, 800 MG PO Q8H PRN for PAIN-MILD Prescribed by: JENNIFER MIN on 01/16/19 1624 Ibuprofen (Ibuprofen) 800 Mg Tablet, 800 MG PO Q8H PRN for PAIN Prescribed by: MARK WOOD on 08/01/21 2246 Ondansetron HCl (Zofran) 4 Mg Tab, 4 MG PO Q6H PRN for NAUSEA/VOMITING-1ST LINE Prescribed by: VINCENT FIELDS on 11/10/18 1218 Prochlorperazine Maleate (Compazine) 25 Mg Supp.rect, 25 MG RC Q6H PRN for NAUSEA/VOMITING-2ND LINE Prescribed by: VINCENT FIELDS on 11/10/18 1218 Review of Systems Review of Systems Constitutional: no symptoms reported Eyes: No Symptoms Reported Ears: No Symptoms Reported Nose: no symptoms reported Mouth: other (Dental caries and left-sided facial swelling) Throat: no symptoms reported Respiratory: no symptoms reported Past Firxvrj-Ihlxdw-Eevrlr Hx Seasonal Allergies Seasonal Allergies: No Past Medical History Surgery/Hospitalization HX: IBS Surgeries: Yes Appendectomy, Section, Gallbladder, Tubal Ligation Respiratory: No Cardiac: No 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 oz. 61.345832pe; 22.00 BMI Method:Stated General Appearance: WD/WN, no apparent distress Eyes: bilateral eye normal inspection, bilateral eye PERRL, bilateral eye EOMI Nose: normal inspection Mouth/Throat: dental tenderness (Left-sided extensive dental caries with eroded teeth in the left upper side and left lower side of teeth shows dental caries as well. Left upper gums are inflamed. Left side of face has mild swelling which does not appear to be loculated, minimal redness and it is not warm to touch.) Neck: non-tender, full range of motion, supple, normal inspection Cardiovascular: regular rate, rhythm, no edema Respiratory: chest non-tender, lungs clear, normal breath sounds, no respiratory distress, no accessory muscle use Neurologic/Psychiatric: alert, oriented x 3 Skin: normal color Progress/Results/Core Measures Results/Orders My Orders Orders - JULIÁN PARKER MD Ketorolac Injection (Ketorolac Injection (08/04/23 15:15) Medications Given in ED Current Medications Medications Dose Ordered Sig/Nathanael Route Start Time Stop Time Status Last Admin Dose Admin Ketorolac Tromethamine 30 mg ONCE ONCE IM 08/04/23 15:15 08/04/23 15:16 DC 08/04/23 15:21 30 MG Vital Signs/I&O 08/04/23 14:50 Temp 36.0 Pulse 97 Resp 16 B/P (MAP) 127/85 (99) Pulse Ox 100 O2 Delivery Room Air Progress Progress Note : Progress Note 1. EXTENSIVE DENTAL CARIES CAUSING LEFT SIDED FACIAL SWELLING: - Pt is speaking in clear sentences without any shortness of breath, and stable vitals. - Toradol im STAT in ER - Augmentin 875mf bid for 10 days - Advised to follow up with dentist ISAIAH - Advised over the counter pain reliever as needed - Advised good oral hygiene. -The patient was seen in the ED, and treated appropriately to presentation at a specific point in time. Patient is informed that there is a possibility that disease and illness can evolve and change in acuity rapidly or slowly after patient is discharged from the ER. Precautionary advice given to the patient for immediate return to ER if symptoms worsen or do not resolve, and to seek emergency care sooner rather than later. Pt also advised on the importance of PCP follow up and compliance with management and follow up plan with PCP and/or specialist, as this is part of the management plan. Pt verbally expressed understanding. Departure Impression Primary Impression: Dental caries Additional Impressions: Gingivitis Left facial swelling Disposition: 01 HOME, SELF-CARE Condition: Stable Departure-Patient Inst. Referrals: NO,LOCAL PHYSICIAN (PCP/Family) Primary Care Physician Patient Instructions: Gingivitis (DC), Meth Mouth, Dental Pain (DC) Add. Discharge Instructions: - Augmentin 875mf bid for 10 days - Advised to follow up with dentist ISAIAH - Advised over the counter pain reliever as needed - Advised good oral hygiene. All discharge instructions reviewed with patient and/or family. Voiced understanding. Scripts Amoxicillin/Potassium Clav (Amox Tr-K Clv 875-125 mg Tab) 875 Mg-125 Mg Tablet 1 EACH PO BID for 10 Days, #20 TAB Prov: JULIÁN PARKER MD 08/04/23 JULIÁN PARKER MD Aug 04, 2023 14:58
[2023-08-04] MEDS ORDERED: KETOROLAC INJ 30 MG/ML VIAL IM ONE (15:15)
[2023-08-04] MEDS ORDERED: AMOX1TAB12 PO ×3 (15:34→15:40)
== END 2023-08-04 15:37 | disposition home or self-care (01) ==
LOC: EDUNIT# 14:46 → ER FS 14:47
DX: K02.9 Dental caries, unspecified (principal); K05.10 Chronic gingivitis, plaque induced; Z88.1 Allergy status to other antibiotic agents; Z88.6 Allergy status to analgesic agent
CPT/HCPCS: 99281